=== PATIENT | female | born 1950 | race Caucasian/White ===

== ENCOUNTER 2017-11-17 08:55 | Day surgery (SDC) ==
[2017-11-17] MEDS ORDERED: LIDOCAINE 1% 20 ML MDV ID STA (10:13)
[2017-11-17] MEDS ORDERED: DIPRIVAN 20 ML VIAL IVP ONE (10:25)
[2017-11-17] MEDS ORDERED: VERSED ONE (10:25)
[2017-11-17 15:07] VITALS: BP 118/66; TEMP 98.7
--- NOTE | 2017-11-18 11:31 | OP ---
PROCEDURE: COLONOSCOPY TO THE CECUM WITH SNARE POLYPECTOMY. ENDOSCOPIST: Rafia DIANE M.D. INDICATION: HISTORY OF POLYPS. INSTRUMENT: Metaplace-190. MEDICATION: PER ANESTHESIA. PROCEDURE: The patient was positioned for colonoscopy. The digital rectal exam was negative. The colonoscope was inserted through the anus and advanced to the cecum. Careful inspection made of each colonic segment . The scope was slowly withdrawn through an adequately prepped colon. [place] Bowel Prep Score 2 +3+3=8. A small polyp in the ascending colon removed using cold snare polypectomy. The remaining colon was normal. Retroflex exam was negative. The patient tolerated the procedure without immediate complication. Withdraw time 10 minutes and 2 seconds. PLAN: 1. Suggest repeat colonoscopy in 5 years. CC: Alisia LAWRENCE
== END 2017-11-17 12:25 | disposition home or self-care (01) ==
LOC: SURG 08:55
PROVIDERS: ATTEND Internal Medicine Gastroenterology
DX: Z09 Encounter for follow-up examination after completed treatment for conditions other than malignant neoplasm (principal); Z86.010 Personal history of colon polyps; K63.5 Polyp of colon